=== PATIENT | female | born 1950 | race Caucasian/White ===

== ENCOUNTER 2018-11-06 10:14 | Outpatient (CLI) | payer MEDICARE ==
--- NOTE | 2018-11-06 11:35 | RAD ---
TWO VIWS CHEST: Comparison: 11-01-17 History: Dyspnea on exertion. FINDINGS: Two views of the chest shows a normal sized cardiomediastinal silhouette. Increased interstitial theresa ings are present. There is no evidence of consolidation, mass, or pleural effusion. Scoliotic curvatu re and degenerative changes are seen in the spine. IMPRESSION: No evidence of acute cardiopulmonary disease. POS: [facility]
== END 2018-11-06 10:15 | disposition home or self-care (01) ==
LOC: BURRAD 10:14
PROVIDERS: ATTEND Family Medicine
DX: R06.09 Other forms of dyspnea (principal)
CPT/HCPCS: 71046

== ENCOUNTER 2019-02-21 09:42 | Emergency (ER) | payer MEDICARE | END 2019-02-21 10:18 | disposition home or self-care (01) | LOC: BURERS 09:42 | DX: H21.02 Hyphema, left eye (principal); I10 Essential (primary) hypertension; Z87.891 Personal history of nicotine dependence | CPT/HCPCS: 99282 ==

== ENCOUNTER 2019-05-20 14:40 | Outpatient (CLI) | payer MEDICARE ==
--- NOTE | 2019-05-20 17:54 | RAD ---
CHEST TWO VIEWS: 05/20/19 Comparison is made with the 03/02/19 study. The heart size is normal. There is no congestion of the vessels to suggest CHF. No effusions or focal infiltrates are seen. The patient has severe scoliosis which could mask some subtle infiltrates. Ove rall, any changes since the February study are minimal. IMPRESSION: No acute thoracic findings. POS: [facility]
== END 2019-05-20 14:41 | disposition home or self-care (01) ==
LOC: BURRAD 14:40
PROVIDERS: ATTEND Nurse Practitioner Family
DX: R60.0 Localized edema (principal)
CPT/HCPCS: 71046

== ENCOUNTER 2021-11-25 19:52 | Emergency (ER) | payer MEDICARE ==
[2021-11-25] MEDS ORDERED: HYDROcodone/Acetaminophen 5/325 mg Tablet ONE (20:50)
== END 2021-11-25 21:30 | disposition home or self-care (01) ==
LOC: BURERS 19:52
DX: S20.212A Contusion of left front wall of thorax, initial encounter (principal); S93.402A Sprain of unspecified ligament of left ankle, initial encounter; I10 Essential (primary) hypertension; W01.0XXA Fall on same level from slipping, tripping and stumbling without subsequent striking against object, initial encounter
CPT/HCPCS: 29515; 71046